=== PATIENT | male | born 1930 | race Caucasian/White ===

== ENCOUNTER 2016-04-17 18:08 | Inpatient (IN) | payer OTHER ==
[~2016-04-17] VITALS: Ht 170.2 cm; Wt 75.7 kg
[~2016-04-17 18:08] MED LIST: AMOX500C2 PO; ASCO500T20 PO; ASPI-1063 PO; CARV25TA55 PO; CEPH-568 PO; CHOL100035 PO; CIPR-211 PO; DOCU-144 PO; ENAL10TA75 PO; FOLI-43 PO; FOLI0.8C PO; FURO-150 PO; HYDR12.55 PO; INSU100V11 SQ; INSULIN; ISOS30TA6 PO; METR500T PO; MULT-1089 PO; RIVA10TA PO; SIMV10TA2 PO; SPIR25TA4 PO; TRAM50TA92 PO; ZIN220 PO
[2016-04-17 18:15] VITALS: BP 111/65; PULSE 69; RESP 16; TEMP 98.2; O2SAT 99
[2016-04-17] MEDS ORDERED: NS 1000 ML BAG IV ONE (18:15)
[2016-04-17 18:42] LABS: BASOPHILS % (AUTO) 0.2 % (0.0-2.0); EOSINOPHILS % (AUTO) 0.3 % (0.0-4.0); HEMATOCRIT 30.1 % (36-54); HEMOGLOBIN 10.1 g/dL (14.0-18.0); LYMPHOCYTES # (AUTO) 0.5 K/uL (1.0-5.5); LYMPHOCYTES % (AUTO) 6.1 % (20.5-51.5); MEAN CORPUSCULAR HEMOGLOBIN 29 pg (27-31); MEAN CORPUSCULAR HGB CONC 33 % (32-36); MEAN CORPUSCULAR VOLUME 87 fL (79.0-98.0); MONOCYTES # (AUTO) 0.7 K/uL (0.0-1.0); MONOCYTES % (AUTO) 7.8 % (1.7-9.3); NEUTROPHILS # (AUTO) 7.8 K/uL (1.8-7.7); NEUTROPHILS % (AUTO) 85.6 % (40.0-70.0); PLATELET COUNT (AUTO) 203 K/uL (130-430); RED BLOOD CELL COUNT(AUTO) 3.46 MIL/uL (4.2-6.2); RED CELL DISTRIBUTION WIDTH 15.6 % (9.0-15.0)
[2016-04-17 18:52] LABS: ANION GAP 6 (5-15); CHLORIDE 95 mmol/L (98-107); CREATININE 1.29 mg/dL (0.55-1.30); GLUCOSE 352 mg/dL (70-99); POTASSIUM 4.3 mmol/L (3.5-5.1); SODIUM SERUM 130 mmol/L (136-145); UREA NITROGEN, BLOOD 34 mg/dL (8-21)
[2016-04-17 18:57] LABS: ALANINE AMINOTRANSFERASE 50 U/L (12-78); ALBUMIN 3.2 g/dL (3.4-4.8); ASPARTATE AMINOTRANSFERASE 46 U/L (10-37); TOTAL BILIRUBIN 0.4 mg/dL (0.0-1.0); TOTAL PROTEIN, SERUM 8.3 g/dL (6.4-8.3)
[2016-04-17] MEDS ORDERED: methylPREDNISolone SOD SUCC 40 MG/ML VIAL IVP ONE (19:30)
[2016-04-17] MEDS ORDERED: EPINEPHrine 1 MG/ML AMP SUBCUT ONE (19:30)
[2016-04-17 21:16] LABS: BILIRUBIN,URINE NEGATIVE (NEGATIVE); BLOOD, URINE 1+ (NEGATIVE); CLARITY/URINE CLEAR (CLEAR); COLOR,URINE YELLOW (YELLOW); GLUCOSE,URINE 3+ (NEGATIVE); KETONES,URINE TRACE (NEGATIVE); LEUKOCYTE ESTERASE ,URINE NEGATIVE (NEGATIVE); NITRITE, URINE NEGATIVE (NEGATIVE); PROTEIN URINE TRACE (NEGATIVE); UROBILINOGEN,URINE 0.2 (0.2-1.0)
[2016-04-17 21:32] LABS: BACTERIA,URINE FEW /HPF (None Seen); MUCUS,URINE 1+ /LPF (None Seen); RBC,URINE 0-3 /HPF (0-3)
[2016-04-17] MEDS ORDERED: AZITHROMYCIN 500 MG in NS 250 ML IV ONE (22:00)
[2016-04-17 22:13] LABS: BLOOD GAS PH 7.495 (7.350-7.450)
[2016-04-17 22:14] LABS: ABG TOTAL HEMOGLOBIN 10.9 G/dL (12.0-18.0); BLOOD GAS BASE EXCESS 1.2 mmol/L (-3.0-3.0); BLOOD GAS COHb% 0.7 % (0.5-1.5); BLOOD GAS HHB 10.3 % (0.0-6.0); BLOOD O2Hb% 88.6 % (94.0-97.0)
[2016-04-17] MEDS ORDERED: AZITHROMYCIN 500 MG/VIAL (ZITHROMAX) IV ONE (22:36)
[2016-04-17] MEDS ORDERED: cefTRIAXone 1 GM IVPB PREMIX 50 ML IV ONE (23:15)
[2016-04-17] MEDS ORDERED: IPRATROPIUM BROM 0.5 MG/2.5 ML VIAL.NEB (ATROVENT) INH PRN (23:15)
[2016-04-17] MEDS ORDERED: ACETAMINOPHEN 325 MG TABLET PO PRN (23:15)
[2016-04-17] MEDS ORDERED: ALBUTEROL SULFATE 0.083% 2.5 MG/3 ML VIAL.NEB INH PRN (23:15)
[2016-04-17 23:53] VITALS: BP 111/65; PULSE 69
[2016-04-17 23:57] VITALS: BP 116/91; PULSE 91; RESP 19; TEMP 99.4; O2SAT 93
[2016-04-18] MEDS: 0.45% NACL 1,000 ML IV SCH ×2 (01:29→21:46)
[2016-04-18] MEDS ORDERED: cefTRIAXone 1 GM IVPB PREMIX 50 ML IV ONE (01:30)
[2016-04-18 04:00] VITALS: TEMP 97.8
[2016-04-18] MEDS: INSULIN ASPART 100 UNITS/ML, 10 ML VIAL (NovoLOG) SUBCUT PRN ×4 (06:13→21:39)
[2016-04-18 06:57] LABS: HEMATOCRIT 29.6 % (36-54); HEMOGLOBIN 9.7 g/dL (14.0-18.0); LYMPHOCYTES # (AUTO) 0.6 K/uL (1.0-5.5); LYMPHOCYTES % (AUTO) 7.5 % (20.5-51.5); MEAN CORPUSCULAR HEMOGLOBIN 29 pg (27-31); MEAN CORPUSCULAR HGB CONC 33 % (32-36); MEAN CORPUSCULAR VOLUME 89 fL (79.0-98.0); MONOCYTES # (AUTO) 0.3 K/uL (0.0-1.0); MONOCYTES % (AUTO) 3.8 % (1.7-9.3); NEUTROPHILS # (AUTO) 7.4 K/uL (1.8-7.7); NEUTROPHILS % (AUTO) 88.7 % (40.0-70.0); PLATELET COUNT (AUTO) 159 K/uL (130-430); RED BLOOD CELL COUNT(AUTO) 3.34 MIL/uL (4.2-6.2); RED CELL DISTRIBUTION WIDTH 16.1 % (9.0-15.0); WHITE BLOOD COUNT (AUTO) 8.3 K/uL (4.8-10.8)
[2016-04-18 06:59] LABS: ALANINE AMINOTRANSFERASE 60 U/L (12-78); ALBUMIN 2.6 g/dL (3.4-4.8); ANION GAP 7 (5-15); ASPARTATE AMINOTRANSFERASE 69 U/L (10-37); CALCIUM 8.2 mg/dL (8.4-11.0); CHLORIDE 98 mmol/L (98-107); CREATININE 1.12 mg/dL (0.55-1.30); GLUCOSE 301 mg/dL (70-99); POTASSIUM 4.2 mmol/L (3.5-5.1); SODIUM SERUM 133 mmol/L (136-145); TOTAL BILIRUBIN 0.3 mg/dL (0.0-1.0); TOTAL PROTEIN, SERUM 7.5 g/dL (6.4-8.3); UREA NITROGEN, BLOOD 28 mg/dL (8-21)
[2016-04-18 08:00] VITALS: BP 119/78; PULSE 88; RESP 18; TEMP 98.2; O2SAT 94
[2016-04-18] MEDS: THIAMINE HCL 100 MG TABLET PO SCH (09:38)
[2016-04-18] MEDS: FOLIC ACID 1 MG TABLET PO SCH (09:38)
[2016-04-18] MEDS: DOCUSATE SODIUM 100 MG CAPSULE PO SCH (09:38)
[2016-04-18] MEDS: ASPIRIN 81 MG TABLET(ECOTRIN) PO SCH (09:39)
[2016-04-18] MEDS: MULTIVITAMINS TAB 1 TABLET PO SCH (09:39)
[2016-04-18] MEDS: SPIRONOLACTONE 25 MG TABLET (ALDACTONE) PO SCH (09:39)
[2016-04-18] MEDS: FUROSEMIDE 20 MG TABLET PO SCH (09:40)
[2016-04-18] MEDS: RIVAROXABAN 10 MG TABLET PO SCH (09:40)
[2016-04-18] MEDS: ISOSORBIDE MONONITRATE 30 MG TAB.ER.24H PO SCH (09:40)
[2016-04-18] MEDS: CARVEDILOL 25 MG TABLET (COREG) PO SCH ×2 (09:42→21:36)
[2016-04-18 12:06] VITALS: BP 126/85; PULSE 63; RESP 18; TEMP 98.8; O2SAT 100
[2016-04-18 16:18] VITALS: BP 139/61; PULSE 75; RESP 18; TEMP 98.1; O2SAT 100
[2016-04-18 19:36] VITALS: BP 138/80; PULSE 68; RESP 18; TEMP 97.2; O2SAT 100
[2016-04-18] MEDS ORDERED: AZITHROMYCIN 500 MG in NS 250 ML IV SCH (21:00)
[2016-04-18] MEDS: ENALAPRIL MALEATE 10 MG TABLET (VASOTEC) PO SCH (21:37)
[2016-04-18] MEDS: SIMVASTATIN 10 MG TABLET PO SCH (21:37)
[2016-04-18] MEDS: cefTRIAXone 1 GM IVPB PREMIX 50 ML IV SCH (21:38)
[2016-04-19 00:06] VITALS: BP 121/70; PULSE 70; RESP 16; TEMP 96.9; O2SAT 99
[2016-04-19 04:40] VITALS: BP 132/75; PULSE 65; RESP 16; TEMP 96.6; O2SAT 100
[2016-04-19] MEDS: INSULIN ASPART 100 UNITS/ML, 10 ML VIAL (NovoLOG) SUBCUT PRN ×4 (06:13→20:47)
[2016-04-19 06:43] LABS: ANION GAP 5 (5-15); CALCIUM 7.7 mg/dL (8.4-11.0); CHLORIDE 98 mmol/L (98-107); CREATININE 0.91 mg/dL (0.55-1.30); GLUCOSE 190 mg/dL (70-99); POTASSIUM 4.1 mmol/L (3.5-5.1); SODIUM SERUM 133 mmol/L (136-145); UREA NITROGEN, BLOOD 29 mg/dL (8-21)
[2016-04-19 06:48] LABS: BASOPHILS % (AUTO) 0.2 % (0.0-2.0); EOSINOPHILS % (AUTO) 0.2 % (0.0-4.0); HEMATOCRIT 31.1 % (36-54); HEMOGLOBIN 10.1 g/dL (14.0-18.0); LYMPHOCYTES # (AUTO) 1.2 K/uL (1.0-5.5); LYMPHOCYTES % (AUTO) 15.1 % (20.5-51.5); MEAN CORPUSCULAR HEMOGLOBIN 29 pg (27-31); MEAN CORPUSCULAR HGB CONC 33 % (32-36); MEAN CORPUSCULAR VOLUME 89 fL (79.0-98.0); MONOCYTES # (AUTO) 0.8 K/uL (0.0-1.0); MONOCYTES % (AUTO) 9.8 % (1.7-9.3); NEUTROPHILS # (AUTO) 6.3 K/uL (1.8-7.7); NEUTROPHILS % (AUTO) 74.7 % (40.0-70.0); PLATELET COUNT (AUTO) 164 K/uL (130-430); RED BLOOD CELL COUNT(AUTO) 3.48 MIL/uL (4.2-6.2); WHITE BLOOD COUNT (AUTO) 8.3 K/uL (4.8-10.8)
[2016-04-19 08:28] VITALS: BP 124/67; PULSE 64; RESP 20; TEMP 97.1; O2SAT 99
[2016-04-19] MEDS: ISOSORBIDE MONONITRATE 30 MG TAB.ER.24H PO SCH (08:31)
[2016-04-19] MEDS: MULTIVITAMINS TAB 1 TABLET PO SCH (08:31)
[2016-04-19] MEDS: THIAMINE HCL 100 MG TABLET PO SCH (08:31)
[2016-04-19] MEDS: CARVEDILOL 25 MG TABLET (COREG) PO SCH ×2 (08:32→20:34)
[2016-04-19] MEDS: FOLIC ACID 1 MG TABLET PO SCH (08:32)
[2016-04-19] MEDS: SPIRONOLACTONE 25 MG TABLET (ALDACTONE) PO SCH (08:32)
[2016-04-19] MEDS: ASPIRIN 81 MG TABLET(ECOTRIN) PO SCH (08:32)
[2016-04-19] MEDS: DOCUSATE SODIUM 100 MG CAPSULE PO SCH (08:32)
[2016-04-19] MEDS: FUROSEMIDE 20 MG TABLET PO SCH (08:32)
[2016-04-19] MEDS: RIVAROXABAN 10 MG TABLET PO SCH (08:32)
[2016-04-19] MEDS ORDERED: BALSAM PERU/CASTOR OIL 60 GM OINT...G. TP SCH (09:00)
[2016-04-19 11:27] VITALS: Ht 170.2 cm; Wt 75.7 kg
[2016-04-19 11:31] VITALS: BP 110/48; PULSE 71; RESP 19; TEMP 97; O2SAT 99
[2016-04-19 16:00] VITALS: BP 114/62; PULSE 68; RESP 20; TEMP 97; O2SAT 99
[2016-04-19 20:15] VITALS: BP 134/79; PULSE 69; RESP 18; TEMP 96.8; O2SAT 94
[2016-04-19] MEDS: 0.45% NACL 1,000 ML IV SCH (20:29)
[2016-04-19] MEDS: cefTRIAXone 1 GM IVPB PREMIX 50 ML IV SCH (20:33)
[2016-04-19] MEDS: ENALAPRIL MALEATE 10 MG TABLET (VASOTEC) PO SCH (20:35)
[2016-04-19] MEDS: SIMVASTATIN 10 MG TABLET PO SCH (20:35)
[2016-04-20 00:49] VITALS: BP 122/65; PULSE 65; RESP 20; TEMP 97.2; O2SAT 94
[2016-04-20 04:06] VITALS: BP 150/73; PULSE 62; RESP 16; TEMP 96.7; O2SAT 95
[2016-04-20] MEDS: INSULIN ASPART 100 UNITS/ML, 10 ML VIAL (NovoLOG) SUBCUT PRN ×2 (06:04→11:52)
[2016-04-20 06:44] LABS: BASOPHILS % (AUTO) 0.6 % (0.0-2.0); EOSINOPHILS # (AUTO) 0.1 K/uL (0.0-0.4); EOSINOPHILS % (AUTO) 1.2 % (0.0-4.0); HEMATOCRIT 31.7 % (36-54); HEMOGLOBIN 10.3 g/dL (14.0-18.0); LYMPHOCYTES # (AUTO) 1.5 K/uL (1.0-5.5); MEAN CORPUSCULAR HEMOGLOBIN 29 pg (27-31); MEAN CORPUSCULAR HGB CONC 33 % (32-36); MEAN CORPUSCULAR VOLUME 89 fL (79.0-98.0); MONOCYTES # (AUTO) 0.7 K/uL (0.0-1.0); MONOCYTES % (AUTO) 12.2 % (1.7-9.3); NEUTROPHILS # (AUTO) 3.2 K/uL (1.8-7.7); PLATELET COUNT (AUTO) 159 K/uL (130-430); RED BLOOD CELL COUNT(AUTO) 3.56 MIL/uL (4.2-6.2); RED CELL DISTRIBUTION WIDTH 15.9 % (9.0-15.0); WHITE BLOOD COUNT (AUTO) 5.5 K/uL (4.8-10.8)
[2016-04-20 06:49] LABS: ANION GAP 5 (5-15); CALCIUM 8.1 mg/dL (8.4-11.0); CHLORIDE 99 mmol/L (98-107); CREATININE 0.77 mg/dL (0.55-1.30); GLUCOSE 189 mg/dL (70-99); SODIUM SERUM 132 mmol/L (136-145); UREA NITROGEN, BLOOD 26 mg/dL (8-21)
[2016-04-20 08:00] VITALS: BP 153/83; PULSE 67; RESP 18; TEMP 97.2; O2SAT 98
[2016-04-20] MEDS: THIAMINE HCL 100 MG TABLET PO SCH (09:34)
[2016-04-20] MEDS: SPIRONOLACTONE 25 MG TABLET (ALDACTONE) PO SCH (09:34)
[2016-04-20] MEDS: ISOSORBIDE MONONITRATE 30 MG TAB.ER.24H PO SCH (09:34)
[2016-04-20] MEDS: CARVEDILOL 25 MG TABLET (COREG) PO SCH (09:34)
[2016-04-20] MEDS: DOCUSATE SODIUM 100 MG CAPSULE PO SCH (09:35)
[2016-04-20] MEDS: RIVAROXABAN 10 MG TABLET PO SCH (09:35)
[2016-04-20] MEDS: FOLIC ACID 1 MG TABLET PO SCH (09:35)
[2016-04-20] MEDS: FUROSEMIDE 20 MG TABLET PO SCH (09:35)
[2016-04-20] MEDS: MULTIVITAMINS TAB 1 TABLET PO SCH (09:35)
[2016-04-20] MEDS: ASPIRIN 81 MG TABLET(ECOTRIN) PO SCH (09:35)
[2016-04-20 11:35] VITALS: BP 153/83; PULSE 61
[2016-04-20 12:00] VITALS: BP 142/84; PULSE 63; RESP 18; TEMP 97.6; O2SAT 96
[2016-04-20 16:10] VITALS: BP 136/99; PULSE 64; RESP 18; TEMP 97.2; O2SAT 98
== END 2016-04-20 16:20 | DRG 638 ==
LOC: SED 18:08 → STU 23:11
PROVIDERS: ADMIT Internal Medicine; ATTEND Internal Medicine
DX: E11.622 Type 2 diabetes mellitus with other skin ulcer (principal); L97.829 Non-pressure chronic ulcer of other part of left lower leg with unspecified severity; L97.819 Non-pressure chronic ulcer of other part of right lower leg with unspecified severity; E11.51 Type 2 diabetes mellitus with diabetic peripheral angiopathy without gangrene; J06.9 Acute upper respiratory infection, unspecified; I11.0 Hypertensive heart disease with heart failure; K21.9 Gastro-esophageal reflux disease without esophagitis; F03.90 Unspecified dementia, unspecified severity, without behavioral disturbance, psychotic disturbance, mood disturbance, and anxiety; E07.9 Disorder of thyroid, unspecified; D63.8 Anemia in other chronic diseases classified elsewhere; I50.9 Heart failure, unspecified; I25.10 Atherosclerotic heart disease of native coronary artery without angina pectoris; E78.5 Hyperlipidemia, unspecified; I48.2 Chronic atrial fibrillation; Z66 Do not resuscitate; Z89.411 Acquired absence of right great toe; Z89.421 Acquired absence of other right toe(s); Z95.0 Presence of cardiac pacemaker; Z79.899 Other long term (current) drug therapy; Z95.1 Presence of aortocoronary bypass graft; Z79.4 Long term (current) use of insulin; Z79.01 Long term (current) use of anticoagulants; Z79.82 Long term (current) use of aspirin
CPT/HCPCS: 36415; 36600; 71010; 80048; 80053; 81000-TC; 82803-TC; 82962; 83605; 83735-TC; 84484; 85025; 87040-TC; 93005; 94760; 96361; 96365; 96372; 96375; 97110-GP; 97530-GP; 99285; J0171; J0456; J0696; J1030; J1815; J1956; J7030

== ENCOUNTER 2016-07-21 17:36 | Inpatient (IN) | payer OTHER ==
[~2016-07-21] VITALS: Ht 172.7 cm; Wt 68.0 kg
[2016-07-21 17:36] VITALS: BP_SYST 150
[~2016-07-21 17:36] MED LIST changes: -AMOX500C2 PO; -CIPR-211 PO; -FOLI-43 PO; -HYDR12.55 PO; -METR500T PO
[2016-07-21] MEDS ORDERED: NACL 0.9% 1,000 ML IV ONE (18:00)
[2016-07-21 18:19] LABS: BASOPHILS % (AUTO) 0.4 % (0.0-2.0); EOSINOPHILS % (AUTO) 0.3 % (0.0-4.0); LYMPHOCYTES # (AUTO) 1.2 K/uL (1.0-5.5); LYMPHOCYTES % (AUTO) 17.5 % (20.5-51.5); MEAN CORPUSCULAR HEMOGLOBIN 28 pg (27-31); MEAN CORPUSCULAR HGB CONC 32 % (32-36); MEAN CORPUSCULAR VOLUME 88 fL (79.0-98.0); MONOCYTES # (AUTO) 0.7 K/uL (0.0-1.0); MONOCYTES % (AUTO) 10.4 % (1.7-9.3); NEUTROPHILS # (AUTO) 4.9 K/uL (1.8-7.7); NEUTROPHILS % (AUTO) 71.4 % (40.0-70.0); PLATELET COUNT (AUTO) 250 K/uL (130-430); RED BLOOD CELL COUNT(AUTO) 4.34 MIL/uL (4.2-6.2); RED CELL DISTRIBUTION WIDTH 15.4 % (9.0-15.0); WHITE BLOOD COUNT (AUTO) 6.8 K/uL (4.8-10.8)
[2016-07-21 18:32] LABS: ANION GAP 12 (5-15); CALCIUM 9.9 mg/dL (8.4-11.0); CHLORIDE 98 mmol/L (98-107); CREATININE 1.64 mg/dL (0.55-1.30); POTASSIUM 4.3 mmol/L (3.5-5.1); SODIUM SERUM 139 mmol/L (136-145); UREA NITROGEN, BLOOD 47 mg/dL (8-21)
[2016-07-21 18:38] LABS: ALANINE AMINOTRANSFERASE 25 U/L (12-78); ALBUMIN 3.5 g/dL (3.4-4.8); ASPARTATE AMINOTRANSFERASE 26 U/L (10-37); TOTAL BILIRUBIN 0.7 mg/dL (0.0-1.0); TOTAL PROTEIN, SERUM 9.2 g/dL (6.4-8.3)
[2016-07-21] MEDS ORDERED: CILO100T PO (18:44)
[2016-07-21] MEDS ORDERED: ENAL20TA70 PO (18:44)
[2016-07-21] MEDS ORDERED: INSU100I24 SQ (18:44)
[2016-07-21] MEDS ORDERED: [UNRECOGNIZED DRUG - OTHER] SQ (18:44)
[2016-07-21 18:49] LABS: GLUCOSE 740 mg/dL (70-99)
[2016-07-21] MEDS ORDERED: INSULIN REGULAR, HUMAN 10 UNITS/0.1 ML INJ IVP ONE (19:15)
[2016-07-21] MEDS ORDERED: INSULIN REGULAR, HUMAN 10 UNITS/0.1 ML INJ ONE (19:33)
[2016-07-21] MEDS ORDERED: ONDANSETRON HCL 4 MG/2 ML VIAL IVP PRN (20:45)
[2016-07-21] MEDS ORDERED: ALBUTEROL SULFATE 0.083% 2.5 MG/3 ML VIAL.NEB INH PRN (20:45)
[2016-07-21] MEDS ORDERED: ACETAMINOPHEN 325 MG TABLET PO PRN (20:45)
[2016-07-21 21:53] VITALS: BP_SYST 135
[2016-07-21 21:55] VITALS: BP_SYST 135
[2016-07-21 22:00] VITALS: BP_SYST 125
[2016-07-21] MEDS: CILOSTAZOL 50 MG TABLET (PLETAL) PO SCH (22:30)
[2016-07-21] MEDS: SIMVASTATIN 10 MG TABLET PO SCH (22:30)
[2016-07-21] MEDS: CARVEDILOL 25 MG TABLET (COREG) PO SCH (22:30)
[2016-07-21] MEDS: CIPROFLOXACIN HCL 0.3% EYE DRP 2.5 ML DROPS OP SCH (23:00)
[2016-07-22] MEDS ORDERED: DEXTROSE 50% JECT 50 ML DISP.SYRIN IVP PRN ×2
[2016-07-22] MEDS ORDERED: INSULIN ASPART 100 UNITS/ML, 10 ML VIAL (NovoLOG) SUBCUT SCH
[2016-07-22] MEDS: 0.45% NACL 1,000 ML IV SCH ×2 (00:05→09:15)
[2016-07-22 00:56] VITALS: BP_SYST 125
[2016-07-22] MEDS: INSULIN ASPART 100 UNITS/ML, 10 ML VIAL (NovoLOG) SUBCUT PRN ×5 (01:03→19:38)
[2016-07-22] MEDS: CIPROFLOXACIN HCL 0.3% EYE DRP 2.5 ML DROPS OP SCH ×6 (03:00→22:35)
[2016-07-22 06:09] VITALS: BP_SYST 147
[2016-07-22 07:30] LABS: BASOPHILS % (AUTO) 0.7 % (0.0-2.0); EOSINOPHILS # (AUTO) 0.1 K/uL (0.0-0.4); EOSINOPHILS % (AUTO) 0.8 % (0.0-4.0); HEMATOCRIT 38.7 % (36-54); HEMOGLOBIN 12.5 g/dL (14.0-18.0); LYMPHOCYTES # (AUTO) 1.3 K/uL (1.0-5.5); LYMPHOCYTES % (AUTO) 18.7 % (20.5-51.5); MEAN CORPUSCULAR HEMOGLOBIN 28 pg (27-31); MEAN CORPUSCULAR HGB CONC 32 % (32-36); MEAN CORPUSCULAR VOLUME 87 fL (79.0-98.0); MONOCYTES # (AUTO) 0.7 K/uL (0.0-1.0); MONOCYTES % (AUTO) 9.7 % (1.7-9.3); NEUTROPHILS # (AUTO) 4.8 K/uL (1.8-7.7); NEUTROPHILS % (AUTO) 70.1 % (40.0-70.0); PLATELET COUNT (AUTO) 248 K/uL (130-430); RED BLOOD CELL COUNT(AUTO) 4.45 MIL/uL (4.2-6.2); RED CELL DISTRIBUTION WIDTH 15.2 % (9.0-15.0); WHITE BLOOD COUNT (AUTO) 6.9 K/uL (4.8-10.8)
[2016-07-22 07:40] LABS: ALANINE AMINOTRANSFERASE 24 U/L (12-78); ALBUMIN 3.2 g/dL (3.4-4.8); ANION GAP 5 (5-15); ASPARTATE AMINOTRANSFERASE 25 U/L (10-37); CALCIUM 9.4 mg/dL (8.4-11.0); CHLORIDE 107 mmol/L (98-107); CREATININE 1.26 mg/dL (0.55-1.30); POTASSIUM 3.8 mmol/L (3.5-5.1); SODIUM SERUM 142 mmol/L (136-145); TOTAL BILIRUBIN 0.6 mg/dL (0.0-1.0); TOTAL PROTEIN, SERUM 8.7 g/dL (6.4-8.3); UREA NITROGEN, BLOOD 37 mg/dL (8-21)
[2016-07-22 08:00] VITALS: BP_SYST 134
[2016-07-22 08:23] LABS: GLUCOSE 415 mg/dL (70-99)
[2016-07-22] MEDS: CILOSTAZOL 50 MG TABLET (PLETAL) PO SCH ×2 (09:58→22:31)
[2016-07-22] MEDS: ISOSORBIDE MONONITRATE 30 MG TAB.ER.24H PO SCH (09:58)
[2016-07-22] MEDS: CARVEDILOL 25 MG TABLET (COREG) PO SCH ×2 (09:59→22:32)
[2016-07-22] MEDS: ENOXAPARIN SODIUM 30 MG/0.3 ML SYRINGE SUBCUT SCH (09:59)
[2016-07-22 11:36] VITALS: BP_SYST 139
[2016-07-22 15:28] VITALS: BP_SYST 108
[2016-07-22 19:55] VITALS: BP_SYST 139
[2016-07-22] MEDS: SIMVASTATIN 10 MG TABLET PO SCH (22:31)
[2016-07-23 01:32] VITALS: BP_SYST 145
[2016-07-23] MEDS: CIPROFLOXACIN HCL 0.3% EYE DRP 2.5 ML DROPS OP SCH ×5 (04:17→21:35)
[2016-07-23] MEDS: 0.45% NACL 1,000 ML IV SCH (04:18)
[2016-07-23 04:35] VITALS: BP_SYST 146
[2016-07-23] MEDS ORDERED: D5NS 1,000 ML IV SCH (05:00)
[2016-07-23 07:47] VITALS: BP_SYST 138
[2016-07-23 07:55] LABS: BASOPHILS % (AUTO) 0.4 % (0.0-2.0); EOSINOPHILS # (AUTO) 0.1 K/uL (0.0-0.4); EOSINOPHILS % (AUTO) 1.7 % (0.0-4.0); HEMATOCRIT 41.9 % (36-54); HEMOGLOBIN 13.2 g/dL (14.0-18.0); LYMPHOCYTES # (AUTO) 1.7 K/uL (1.0-5.5); MEAN CORPUSCULAR HEMOGLOBIN 27 pg (27-31); MEAN CORPUSCULAR HGB CONC 32 % (32-36); MEAN CORPUSCULAR VOLUME 87 fL (79.0-98.0); MONOCYTES # (AUTO) 0.8 K/uL (0.0-1.0); NEUTROPHILS % (AUTO) 63.9 % (40.0-70.0); PLATELET COUNT (AUTO) 269 K/uL (130-430); RED BLOOD CELL COUNT(AUTO) 4.83 MIL/uL (4.2-6.2); RED CELL DISTRIBUTION WIDTH 15.6 % (9.0-15.0); WHITE BLOOD COUNT (AUTO) 7.6 K/uL (4.8-10.8)
[2016-07-23 08:12] LABS: ALANINE AMINOTRANSFERASE 26 U/L (12-78); ALBUMIN 3.1 g/dL (3.4-4.8); ASPARTATE AMINOTRANSFERASE 32 U/L (10-37); CALCIUM 9.5 mg/dL (8.4-11.0); CHLORIDE 113 mmol/L (98-107); CREATININE 0.96 mg/dL (0.55-1.30); GLUCOSE 72 mg/dL (70-99); POTASSIUM 3.6 mmol/L (3.5-5.1); SODIUM SERUM 147 mmol/L (136-145); TOTAL BILIRUBIN 0.7 mg/dL (0.0-1.0); TOTAL PROTEIN, SERUM 9.1 g/dL (6.4-8.3); UREA NITROGEN, BLOOD 26 mg/dL (8-21)
[2016-07-23 08:19] LABS: ANION GAP < 3 (5-15)
[2016-07-23] MEDS: CILOSTAZOL 50 MG TABLET (PLETAL) PO SCH ×2 (09:41→21:25)
[2016-07-23] MEDS: CARVEDILOL 25 MG TABLET (COREG) PO SCH ×2 (09:41→21:26)
[2016-07-23] MEDS: ISOSORBIDE MONONITRATE 30 MG TAB.ER.24H PO SCH (09:41)
[2016-07-23] MEDS: ENOXAPARIN SODIUM 30 MG/0.3 ML SYRINGE SUBCUT SCH (09:41)
[2016-07-23] MEDS: INSULIN ASPART 100 UNITS/ML, 10 ML VIAL (NovoLOG) SUBCUT PRN ×2 (11:35→18:22)
[2016-07-23 12:27] VITALS: BP_SYST 144
[2016-07-23 16:27] VITALS: BP_SYST 140
[2016-07-23] MEDS: NACL 0.9% 1,000 ML IV SCH (18:09)
[2016-07-23 20:00] VITALS: BP_SYST 105
[2016-07-23] MEDS: SIMVASTATIN 10 MG TABLET PO SCH (21:25)
[2016-07-24] MEDS: CIPROFLOXACIN HCL 0.3% EYE DRP 2.5 ML DROPS OP SCH ×7 (00:38→22:29)
[2016-07-24 01:14] VITALS: BP_SYST 125
[2016-07-24 04:12] VITALS: BP_SYST 125
[2016-07-24 08:00] VITALS: BP_SYST 102; BP_SYST 125
[2016-07-24] MEDS: NACL 0.9% 1,000 ML IV SCH (08:25)
[2016-07-24] MEDS: ENOXAPARIN SODIUM 30 MG/0.3 ML SYRINGE SUBCUT SCH (09:33)
[2016-07-24] MEDS: CILOSTAZOL 50 MG TABLET (PLETAL) PO SCH ×2 (09:34→22:23)
[2016-07-24] MEDS: ISOSORBIDE MONONITRATE 30 MG TAB.ER.24H PO SCH (09:34)
[2016-07-24] MEDS: CARVEDILOL 25 MG TABLET (COREG) PO SCH ×2 (09:35→22:23)
[2016-07-24 12:29] VITALS: BP_SYST 117
[2016-07-24] MEDS: INSULIN ASPART 100 UNITS/ML, 10 ML VIAL (NovoLOG) SUBCUT PRN ×2 (13:43→22:27)
[2016-07-24 16:37] VITALS: BP_SYST 110
[2016-07-24 21:42] VITALS: BP_SYST 117
[2016-07-24] MEDS: SIMVASTATIN 10 MG TABLET PO SCH (22:23)
[2016-07-25] VITALS: BP_SYST 125
[2016-07-25] MEDS: CIPROFLOXACIN HCL 0.3% EYE DRP 2.5 ML DROPS OP SCH ×4 (02:49→15:14)
[2016-07-25] MEDS: INSULIN ASPART 100 UNITS/ML, 10 ML VIAL (NovoLOG) SUBCUT PRN ×4 (02:51→15:19)
[2016-07-25 04:00] VITALS: BP_SYST 130
[2016-07-25 08:12] VITALS: BP_SYST 139
[2016-07-25] MEDS: ISOSORBIDE MONONITRATE 30 MG TAB.ER.24H PO SCH (08:19)
[2016-07-25] MEDS: CILOSTAZOL 50 MG TABLET (PLETAL) PO SCH (08:19)
[2016-07-25] MEDS: CARVEDILOL 25 MG TABLET (COREG) PO SCH (08:20)
[2016-07-25] MEDS: ENOXAPARIN SODIUM 30 MG/0.3 ML SYRINGE SUBCUT SCH (08:20)
[2016-07-25] MEDS: NACL 0.9% 1,000 ML IV SCH (08:30)
[2016-07-25 12:10] VITALS: BP_SYST 120
[2016-07-25 16:34] VITALS: BP_SYST 120
[2016-07-25 16:40] VITALS: BP_SYST 128
== END 2016-07-25 17:20 | DRG 682 ==
LOC: SED 17:36 → SMU 20:45
PROVIDERS: ADMIT Internal Medicine; ATTEND Internal Medicine
DX: N17.9 Acute kidney failure, unspecified (principal); G93.40 Encephalopathy, unspecified; E11.65 Type 2 diabetes mellitus with hyperglycemia; I25.10 Atherosclerotic heart disease of native coronary artery without angina pectoris; E11.621 Type 2 diabetes mellitus with foot ulcer; L97.509 Non-pressure chronic ulcer of other part of unspecified foot with unspecified severity; E11.51 Type 2 diabetes mellitus with diabetic peripheral angiopathy without gangrene; E78.5 Hyperlipidemia, unspecified; I87.2 Venous insufficiency (chronic) (peripheral); I11.0 Hypertensive heart disease with heart failure; I50.9 Heart failure, unspecified; Z95.1 Presence of aortocoronary bypass graft; Z79.4 Long term (current) use of insulin; Z79.899 Other long term (current) drug therapy; Z95.0 Presence of cardiac pacemaker; Z87.891 Personal history of nicotine dependence
CPT/HCPCS: 36415; 70450-TC; 71010; 80053; 82962; 83735-TC; 83880; 84484; 85025; 93005; 96361; 96374; 99285; J1650; J1815; J7030; J7042